=== PATIENT | female | born 1965 | race Caucasian/White ===

== ENCOUNTER 2017-03-01 15:08 | Emergency (ER) | payer SELFPAY ==
[~2017-03-01] VITALS: Ht 170.2 cm; Wt 146.2 kg
[~2017-03-01 15:08] MED LIST: ALPR0.254 PO; AMOX1TAB12 PO; ATEN25TA PO; CHOL40002 PO; CHOL400C PO; DABI150C PO; FURO40TA6 PO; GLYB5TAB3 PO; GLYB6TAB3 PO; METH10TA6 PO; SITA1TAB5 PO; SPIR25TA PO; SPIR25TA3 PO; Will bring list DOS
[2017-03-01] MEDS ORDERED: ONDANSETRON 2MG/ML, 2ML IVPush ONE (15:30)
[2017-03-01] MEDS ORDERED: SODIUM CHLORIDE 0.9% 1,000ML IVBOLUS ONE (15:30)
[2017-03-01] MEDS ORDERED: MORPHINE SULFATE 4 MG/ML, 1ML ONE ×2 (15:56→16:36)
[2017-03-01] MEDS ORDERED: ONDANSETRON 2MG/ML, 2ML ONE (15:57)
[2017-03-01] MEDS: MORPHINE SULFATE 4 MG/ML, 1ML IVPush PRN ×2 (15:58→16:39)
[2017-03-01 15:59] LABS: HEMOGLOBIN 15.4 g/dL (11.7-16.4)
[2017-03-01 16:10] LABS: ASPARTATE AMINO TRANSFERASE 19 U/L (15-37); BLOOD UREA NITROGEN 15 mg/dL (7-18)
[2017-03-01] MEDS ORDERED: OMNIPAQUE 350 MG/ML, 150 ML BOTTLE ONE (17:41)
[2017-03-01] MEDS ORDERED: FURO20TA3 PO (18:51)
[2017-03-01] MEDS ORDERED: WARF5TAB PO (18:51)
[2017-03-01] MEDS ORDERED: RIOC2.5T PO (18:51)
[2017-03-01] MEDS ORDERED: FURO80TA3 PO (18:52)
[2017-03-01 20:21] VITALS: BP 142/70
== END 2017-03-01 20:22 | disposition home or self-care (01) ==
LOC: ED 15:35
DX: M79.652 Pain in left thigh (principal); E27.9 Disorder of adrenal gland, unspecified; E11.9 Type 2 diabetes mellitus without complications; I11.0 Hypertensive heart disease with heart failure; I50.9 Heart failure, unspecified
CPT/HCPCS: 36415; 74177; 76830; 80053; 81001; 83605; 85025; 96361; 96374; 96375; 96376; 99285; J2405; J7030; Q9967